=== PATIENT | female | born 1995 | race Caucasian/White ===

== ENCOUNTER → 2018-12-30 | Outpatient (CLI) | payer BC, OTHER ==
[~2018-12-30] MED LIST: GADOTERATE 7.5 MMOL/15ML VIAL. IVP ONE
--- NOTE | 2018-12-30 11:17 | KCIC ---
MR venogram brain without contrast History: Papilledema, chronic migraine headaches for years Technique: Noncontrast MR venography was performed of the brain. Comparison: None Findings: There is some motion. No defined filling defect is identified of the major venous sinuses, suggest thrombus. Some areas of symmetric decreased signal of the visualized jugular veins bilaterally is probably related to flow artifact. Impression: 1. No occlusive thrombus is identified of the intracranial venous sinuses. Electronically signed by: Dale Murcia MD (12/30/2018 11:14 AM) [id number]
--- NOTE | 2018-12-30 11:51 | KCIC ---
MRI Brain with and without contrast History: Papilledema, abnormal eye exam recently, chronic migraine headaches for years Technique: Multiplanar, multi sequential pre and postcontrast MR imaging was performed of the brain. Comparison: None Findings: There is no evidence of recent infarct or cytotoxic edema. The ventricles, sulci, and cisterns are within normal limits in size and configuration. There is no significant midline shift, intraaxial mass effect, or focal abnormal extra-axial fluid collection. There is no significant signal abnormality of the brain parenchyma. There is no nodular parenchymal or leptomeningeal enhancement. There is preservation of the major intracranial flow-voids at the skull base. The cerebellar tonsils are normal in location. There is no significant abnormality of the pituitary gland. There is a small 0.5 cm somewhat bilobed likely cyst of the pineal gland. There is minimal left sphenoid sinus as well as bilateral maxillary sinus mucosal thickening, also some patchy mild to moderate ethmoid air cell mucosal thickening. There is negligible frontal sinus mucosal thickening. There is mild increased CSF signal of the optic nerve sheaths, slightly disconjugate gaze. The mastoid air cells are aerated. Decreased signal of the marrow of nonexpanded clivus is likely due to residual red marrow in a patient this age. Impression: 1. 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 There is mild increased CSF signal of the optic nerve sheaths, nonspecific findings which could be incidental although can be associated with intracranial hypertension. No other significant intracranial abnormality is identified. 2. There is paranasal sinus mucosal thickening as stated. Electronically signed by: Dale Murcia MD (12/30/2018 11:48 AM) [id number]
== END | disposition home or self-care (01) ==
LOC: KCIC MRI 10:05
DX: H47.11 Papilledema associated with increased intracranial pressure (principal); J34.89 Other specified disorders of nose and nasal sinuses
CPT/HCPCS: 70544; 70553; A9575